=== PATIENT | female | born 1975 | race Two or more races ===

== ENCOUNTER 2017-11-09 18:17 | Emergency (ER) | payer SELFPAY ==
--- NOTE | 2017-11-09 19:51 | ED ---
Respiratory - HPI Summary HPI Summary: The pt is a 42 y/o female presenting to [facility] c/o nasal congestion for the last 5 days worsened 3 days ago. She notes CP, DUTTON, dyspnea, body aches, fever, cough , chills, and post nasal drip. She took Night quill to no relief. - History of Current Complaint Chief Complaint: EDFluSymptoms Stated Complaint: CONGESTION/CHEST PAIN/GENERAL ILLNESS Time Seen by Provider: 11/09/17 19:46 Hx Obtained From: Patient, Family/Supervisor [employer] Onset/Duration: Lasting Days - 5 days, Still Present, Worse Since - 3 days ago Current Severity: Mild Pain Intensity: 1 - Allergy/Home Medications Allergies/Adverse Reactions: Allergies Allergy/AdvReac Type Severity Reaction Status Date / Time morphine Allergy Rash And Verified 11/09/17 19:34 Itching Home Medications: Home Medications NK [No Home Medications Reported] 11/09/17 [History Confirmed 11/09/17] PMH/Surg Hx/FS Hx/Imm Hx Previously Healthy: Yes Endocrine/Hematology History: Denies: Hx Diabetes Cardiovascular History: Denies: Hx Hypertension Respiratory History: Denies: Hx Asthma Sensory History: Denies: Hx Deafness Opthamlomology History: Denies: Hx Legally Blind - Cancer History Hx Chemotherapy: No Hx Radiation Therapy: No - Surgical History Surgery Procedure, Year, and Place: Breast implants, Infectious Disease History: No Infectious Disease History: Denies: Traveled Outside the [place] in Last 30 Days - Family History Known Family History: Positive: None - Denies hx of breast CA - Social History Occupation: Unemployed Lives: With Family Alcohol Use: None Substance Use Type: Reports: None Smoking Status (MU): Never Smoked Tobacco Review of Systems Constitutional: Other - Positve: body aches Positive: Chills ENT: Other - Positive: Nasal congestion, post-nasal drip Positive: Chest Pain Respiratory: Other - Positive: dyspnea Positive: Shortness Of Breath, Cough All Other Systems Reviewed And Are Negative: Yes Physical Exam - Summary Physical Exam Summary: Appearance: Well-appearing, Well-nourished, lying in bed comfortable Skin: Warm, dry, no obvious rash Eyes: sclera anicteric, no conjunctival pallor ENT: mucous membranes moist; Minimal sinus tenderness to percussion; No post nasal drip seen; No nasal discharge Neck: deferred Respiratory: No signs of respiratory distress Cardiovascular: Appears well perfused, pulses are nml Abdomen: deferred Musculoskeletal: Moving all 4 extremities without obvious discomfort Neurological: Awake and alert, mentation is normal, speech is fluent and appropriate Psychiatric: affect is normal, does not appear anxious or depressed Triage Information Reviewed: Yes Vital Signs On Initial Exam: Initial Vitals Temp Pulse Resp BP Pulse Ox 97.4 F 64 16 101/64 99 11/09/17 18:25 11/09/17 18:25 11/09/17 18:25 11/09/17 18:25 11/09/17 18:25 Vital Signs Reviewed: Yes Diagnostics - Vital Signs Vital Signs Temp Pulse Resp BP Pulse Ox 11/09/17 18:25 97.4 F 64 16 101/64 99 - Laboratory Lab Statement: Any lab studies that have been ordered have been reviewed, and results considered in the medical decision making process. Disposition - Course Course Of Treatment: A 42 year-old F presents to the ED with a CC of nasal congestion for the last 5 days worsened 3 days ago. She notes CP, DUTTON, dyspnea, body aches, fever, coughs, chills, and post nasal drip. She took Night quill to no relief. physical exam revealed minimal sinus tenderness to percussion; no post nasal drip and no nasal discharge. In the ED course, pt was given Oxymetazoline 0.05% spray, and Pseudoephedrine tab 60 mg PO twice which improved the symptoms. Patient will be discharged with a final Dx of UTI and rhinosinusitis. Pt is agreeable with this plan. Allergies noted. - Diagnoses Provider Diagnoses: URI (upper respiratory infection), Rhinosinusitis Discharge - Sign-Out/Discharge Documenting (check all that apply): Patient Departure - DC - Discharge Plan Condition: Stable Disposition: HOME Patient Education Materials: Rhinosinusitis (ED) Referrals: No Primary Care Phys,NOPCP [Primary Care Provider] - [facility] [Outside] - 3 Days Additional Instructions: I recommend you take afrin nasal spray and pseudoephedrine tablets to help with your symptoms. These types of infection usually take 1-2 weeks to resolve and research indicates that antibiotics do not significantly shorten the duration of your illness. You might also want to try a Neti Pot, which many find very helpful in clearing the nasal passages and sinuses. Return to ED for any new or worsening symptoms - Billing Disposition and Condition Condition: STABLE Disposition: Home - Attestation Statements Document Initiated by Gretta: Yes Documenting Scribe: Lilian Martinez Provider For Whom Gretta is Documenting (Include Credential): Dr. Primo Solorio MD Scribe Attestation: Lilian Salas, scribed for Dr. Primo Solorio MD on 11/10/17 at 1523. Scribe Documentation Reviewed: Yes Provider Attestation: The documentation as recorded by the yovanyibe, Lilian Martinez accurately reflects the service I personally performed and the decisions made by me, Dr. Primo Solorio MD
[2017-11-09] MEDS ORDERED: Oxymetazoline 0.05% NASAL SPR* 15 ML BTL BOTH NARES ONE (19:54)
[2017-11-09] MEDS ORDERED: Pseudoephedrine TAB* 60 MG PO ONE (19:55)
[2017-11-09 20:23] VITALS: BP 98/59
[2017-11-09] MEDS ORDERED: Pseudoephedrine TAB* 30 MG PO ONE (21:00)
== END 2017-11-09 20:22 | disposition home or self-care (01) ==
LOC: ED 18:17
DX: J32.9 Chronic sinusitis, unspecified (principal); N39.0 Urinary tract infection, site not specified; Z88.5 Allergy status to narcotic agent
CPT/HCPCS: 99282; A9270-GY

== ENCOUNTER 2018-10-07 20:05 | Observation (INO) | payer MEDICAID, OTHER ==
--- NOTE | 2018-10-07 21:01 | ED ---
Complex/Multi-Sys Presentation - HPI Summary HPI Summary: Pt is a 42 y/o F presenting to the ED with multiple symptoms present. She states that about 2 months ago, she began feeling frequent dizziness. She notes that she experienced sx when she walked, including CP on the L anterior side, fatigue, SOB, dizziness, and lightheadedness. She visited her emergency services professional in [facility], and she found that she had a heart murmur and bicuspid aortic valve, and he wants her to follow up with cardiology here in [place], which she has not been able to do yet. Today, she experienced pain in her L hand, trouble walking at around 1800 when she was on a walk with her , characterized by a DUTTON, CP as a quick shocking feeling, weakness, chills, and nausea. She denies abd pain or diaphoresis. The CP is not triggered by anything, but instead comes on unexpectedly, and resolves spontaneously. - History Of Current Complaint Chief Complaint: EDHeadache Time Seen by Provider: 10/07/18 20:27 Hx Obtained From: Patient Onset/Duration: Gradual Onset, Lasting Minutes, Still Present Timing: Intermittent, Lasting:, Minutes Severity Currently: Moderate Severity Initially: Moderate Associated Signs And Symptoms: Positive: Dizziness, Weakness, Headache, SOB, Chest Pain, Nausea. Negative: Abdominal Pain, Diaphoresis - Allergies/Home Medications Allergies/Adverse Reactions: Allergies Allergy/AdvReac Type Severity Reaction Status Date / Time morphine Allergy Rash And Verified 10/07/18 20:16 Itching PMH/Surg Hx/FS Hx/Imm Hx Previously Healthy: Yes Endocrine/Hematology History: Denies: Hx Diabetes Cardiovascular History: Reports: Other Cardiovascular Problems/Disorders - heart murmur Denies: Hx Hypertension Respiratory History: Denies: Hx Asthma Sensory History: Denies: Hx Legally Blind, Hx Deafness Opthamlomology History: Denies: Hx Legally Blind - Cancer History Hx Chemotherapy: No Hx Radiation Therapy: No - Surgical History Surgery Procedure, Year, and Place: Breast implants, Infectious Disease History: No Infectious Disease History: Reports: Traveled Outside the [place] in Last 30 Days - Family History Known Family History: Positive: Cardiac Disease Negative: Other - breast CA - Social History Lives: With Family Alcohol Use: None Hx Substance Use: No Substance Use Type: Reports: None Hx Tobacco Use: No Smoking Status (MU): Never Smoked Tobacco Review of Systems Positive: Chills, Fatigue. Negative: Skin Diaphoresis Positive: Chest Pain Positive: Shortness Of Breath Positive: Nausea. Negative: Abdominal Pain Positive: Myalgia - L hand, Other - trouble walking Neurological: Other - dizziness, lightheadedness Positive: Headache, Weakness All Other Systems Reviewed And Are Negative: Yes Physical Exam - Summary Physical Exam Summary: Appearance: Well-appearing, Well-nourished, lying in bed comfortably Skin: Warm, dry, no obvious rash Eyes: sclera anicteric, no conjunctival pallor ENT: mucous membranes moist, pharynx appears normal Neck: Supple, nontender Respiratory: Clear to auscultation, no signs of respiratory distress Cardiovascular: Normal S1, S2. No murmurs. Normal distal pulses in tibial and radial bilaterally. Abdomen: Soft, nontender, normal active bowel sounds present Musculoskeletal: Normal, Strength/ROM Intact Neurological: A&Ox3, awake and alert, mentation is normal, speech is fluent and appropriate Psychiatric: affect is normal, does not appear anxious or depressed Triage Information Reviewed: Yes Vital Signs On Initial Exam: Initial Vitals Temp Pulse Resp BP Pulse Ox 98.5 F 56 16 155/77 99 10/07/18 20:10 10/07/18 20:10 10/07/18 20:10 10/07/18 20:10 10/07/18 20:10 Vital Signs Reviewed: Yes Diagnostics - Vital Signs Vital Signs Temp Pulse Resp BP Pulse Ox 10/07/18 20:10 98.5 F 56 16 155/77 99 - Laboratory Result Diagrams: 10/07/18 21:08 10/08/18 06:08 Lab Statement: Any lab studies that have been ordered have been reviewed, and results considered in the medical decision making process. - Radiology CXR Radiology Interpretation Completed By: ED Physician Summary of Radiographic Findings: No acute process, pending official radiology report. - EKG 2037 Cardiac Rate: Bradycardia - 57bpm EKG Rhythm: Sinus Bradycardia ST Segment: Normal Ectopy: None Summary of EKG Findings: EKG at 2037 shows sinus bradycardia at 57bpm, P waves, QRS complex, and T waves are within normal limits, T waves and intervals are normal, no ischemic changes. This is a normal EKG. 2016 Cardiac Rate: Bradycardia - 57bpm EKG Rhythm: Sinus Bradycardia ST Segment: Normal Ectopy: None Summary of EKG Findings: EKG at 2017 shows sinus bradycardia at 51bpm, P waves, QRS complex, and T waves are within normal limits, T waves and intervals are normal, no ischemic changes. This is a normal EKG. Complex Multi-Symp Course/Dx Course Of Treatment: Pt is a 42 y/o F presenting to the ED with multiple symptoms, including dizziness initially onset about 2 months ago, CP that comes on unexpectedly on the L anterior side, fatigue, SOB, lightheadedness, trouble walking, L hand pain, DUTTON, nausea, chills, and weakness. She denies abd pain or diaphoresis. FHx of cardiac issues. EKG at 2017 shows sinus bradycardia at 51bpm, P waves, QRS complex, and T waves are within normal limits, T waves and intervals are normal, no ischemic changes. This is a normal EKG. CXR shows no acute process, pending official radiology report. Pts hematology shows RDW of 19 and MPV of 6.9. Her chemistry shows BUN/Creatinine ratio of 25.0, and Troponin I of 0.21. 2141 - I spoke with Dr. Suárez of cardiology who agrees with the plan to admit the pt to the hospitalist. 2211 - I spoke with Dr. Daily who will come to evaluate the pt for admission. Pt's Troponin I was corrected to be 0.01. However, I spoke with Dr. Daily as I would still like the patient to be admitted for further cardiac workup d/t worsening angina sx. - Diagnoses Provider Diagnoses: Crescendo angina Discharge ED - Sign-Out/Discharge Documenting (check all that apply): Patient Departure Patient Received Moderate/Deep Sedation with Procedure: No - Discharge Plan Condition: Stable Disposition: ADMITTED TO [facility] - Billing Disposition and Condition Condition: STABLE Disposition: Admitted to [facility] - Attestation Statements Document Initiated by Scribe: Yes Documenting Scribe: Lori Villasenor Provider For Whom Gretta is Documenting (Include Credential): Primo Solorio MD. Scribe Attestation: Lori Salas, scribed for Primo Solorio MD. on 10/08/18 at 1843. Scribe Documentation Reviewed: Yes Provider Attestation: The documentation as recorded by the scribe, Lori Villasenor accurately reflects the service I personally performed and the decisions made by me, Primo Solorio MD. Status of Gretta Document: Viewed Consult Consult: 2141 - I spoke with Dr. Suárez who agrees with the plan to admit the pt to the hospitalist.
[2018-10-07 21:16] LABS: ABS Basophils 0.1 10^3/ul (0-0.2); ABS Eosinophils 0.4 10^3/ul (0-0.6); ABS Lymphocytes 3.3 10^3/ul (1.0-4.8); ABS Monocytes 0.9 10^3/ul (0-0.8); ABS Neutrophils 4.5 10^3/ul (1.5-7.7); Eosinophil % 4.7 %; Hematocrit 39 % (35-47); Hemoglobin 13.2 g/dL (12.0-16.0); Lymphocyte % 36.2 %; Mean Corpuscular HGB Conc 34 g/dL (31-36); Mean Corpuscular Hemoglobin 29 pg (27-31); Mean Corpuscular Volume 85 fL (80-97); Mean Platelet Volume 6.9 fL (7.4-10.4); Platelet Count 322 10^3/uL (150-450); Red Cell Distribution Width 19 % (10-15); White Blood Count 9.2 10^3/uL (3.5-10.8)
[2018-10-07] MEDS ORDERED: Acetaminophen TAB* 325 MG PO ONE (21:20)
[2018-10-07 21:33] LABS: ALT 12 U/L (7-52); AST 15 U/L (13-39); Albumin 4.5 g/dL (3.2-5.2); Albumin/Globulin Ratio 1.7 (1-3); Alkaline Phosphatase 68 U/L (34-104); Anion Gap 7 mmol/L (2-11); Blood Urea Nitrogen 17 mg/dL (6-24); CO2 Carbon Dioxide 26 mmol/L (22-32); Calcium 9.5 mg/dL (8.6-10.3); Chloride 107 mmol/L (101-111); EGFR African American 114.3 (>60); EGFR Non-African American 94.4 (>60); Globulin 2.6 g/dL (2-4); Glucose 100 mg/dL (70-100); Potassium 3.9 mmol/L (3.5-5.0); Sodium 140 mmol/L (135-145); Total Protein 7.1 g/dL (6.4-8.9)
[2018-10-07] MEDS ORDERED: Aspirin 81 mg CHEW TAB* 81 MG TAB.CHEW PO ONE (21:40)
[2018-10-07] MEDS ORDERED: Heparin DRIP 25,000 UNITS(*) 25,000 UNITS/500 ML BAG IV SCH (21:45)
[2018-10-07] MEDS ORDERED: Heparin VIAL(*) 5000 UNITS/ML VIAL (FIVE THOUSAND) IV PRN (22:01)
[2018-10-07] MEDS ORDERED: Heparin VIAL(*) 5000 UNITS/ML VIAL (FIVE THOUSAND) ONE (22:02)
[2018-10-07 22:26] LABS: Troponin I 0.01 ng/mL (<0.04)
[2018-10-07] MEDS ORDERED: Acetaminophen TAB* 325 MG PO PRN (22:54)
[2018-10-07] MEDS ORDERED: Al Hydrox/Mg Hydrox/Simet LIQ* 30 ML UDC PO PRN (22:54)
[2018-10-07 23:24] LABS: % Iron Saturation 11 % (15-55); Iron 46 ug/dL (50-212); Total Iron Binding Capacity 405 mcg/dL (250-450); Transferrin 289 mg/dL (203-362)
[2018-10-07 23:39] LABS: TSH (Thyroid Stimulating Horm) 2.47 mcIU/mL (0.34-5.60)
[2018-10-07 23:45] LABS: Ferritin 32.4 ng/mL (11-307)
[2018-10-08 00:22] LABS: HDL Cholesterol 42.8 mg/dL
[2018-10-08 00:25] LABS: Troponin I 0.01 ng/mL (<0.04)
--- NOTE | 2018-10-08 01:51 | HP ---
HISTORY AND PHYSICAL: DATE OF ADMISSION: 10/07/18 PRIMARY CARE PHYSICIAN: None. HEALTHCARE PROXY: Healthcare proxy is her or brother, Kg. CODE STATUS: Full. CHIEF COMPLAINT: Subacute headaches, chest pain, and shortness of breath. HISTORY OF PRESENT ILLNESS: Ms. Horton is a 42-year-old woman without significant past medical history who is presenting after onset of headache, shortness of breath, and chest pain that started on the morning of presentation. She notes being in her usual state of health until approximately 2 months ago when she began to experience mild substernal chest pressure. At that time, she was in [facility] and saw a physician who ordered an echocardiogram and had diagnosed her with a bicuspid aortic valve, which she reports her father had. He otherwise told her that her other tests were normal except for anemia and that she should stop exercising given her anemia. Over the last couple of months her symptoms of mild chest pressure had persisted and she had returned to her home in [place], [place]. She attempted to exercise again, but experienced extreme fatigue and palpitations during exercise, although she does not have worsening chest pressure on exertion. This morning she was at a store and experienced sudden onset of occipital headache, which progressed to be associated with shortness of breath, diaphoresis, and a substernal pressure- like chest pain that radiated to the left side of her chest. She reports it was also associated with nausea, but denies vomiting, palpitations, abdominal pain, constipation, diarrhea, lower extremity swelling. She does think that this episode was associated with anxiety and tremulousness as well, but states that the anxiety started after the symptoms. She denies history of these symptoms in the past, except for noted chest pressure that she began experiencing 2 months ago in [place]. She also denies visual changes, focal weakness, tingling or numbness. She does not experience morning headaches. Of note, while the patient does not have significant medical history, she has been seen frequently in the past in this ER for multiple generalized symptoms including nasal congestion, pelvic pain, abdominal pain, breast pain, back pain , and varicose veins. In the emergency room, the patient's symptoms mildly improved without intervention. Her EKG was unremarkable, and her troponin initially resulted with 0.26. So, she was given aspirin and started on a heparin drip. However, by the time of admission interview, the laboratory had corrected their troponin value to 0.01, which is normal. So, the patient's heparin drip was stopped, but given that she was still experiencing diaphoresis, chest pain, and was noted to have bradycardia and significant family cardiac history, she was still admitted to Medicine for further evaluation. PAST MEDICAL HISTORY: 1. Varicose vein, status post surgical intervention. 2. Anemia of unknown etiology, resolved. 3. Breast implants. 4. Bicuspid aortic valve. MEDICATIONS: Previously she was taking iron. ALLERGIES: MORPHINE caused itching. FAMILY HISTORY: The patient reports one of her younger brothers from [place] at the age of 25, another younger brother of hers has a device, either a PPM or ICD. Her maternal grandmother and aunt have diabetes. Her father due to complications from aortic valve replacements for a bicuspid aortic valve. SOCIAL HISTORY: The patient is originally from [facility], but has lived in [place] for years. She lives with her , mother, and 4 children. She reports rare tobacco use at a young age, but no significant use in adulthood. She has rare wine. She denies other recreational drugs. She works as a housewife. PHYSICAL EXAM: GENERAL: She is a well-appearing woman, in no acute distress, but does appear mildly uncomfortable, not anxious. She is alert, interactive, very pleasant. VITAL SIGNS: Afebrile, heart rate 50, blood pressure 155/77, respiratory rate 16, oxygen saturation 99% on room air. HEENT: With moist mucous membranes. OP clear. Sclerae anicteric. NECK: Supple. No JVD. LUNGS: Clear to auscultation bilaterally. No increased work of breathing. HEART: Bradycardic, regular rhythm. No murmurs, gallops or rubs. ABDOMEN: Soft, nontender, nondistended. EXTREMITIES: Warm and well perfused. No evidence of edema. NEURO: A and O x3. No focal deficits. Speech fluent. SKIN: With mild diaphoresis. DIAGNOSTIC STUDIES/LAB DATA: Hemoglobin normal, with normal MCV. BMP and LFTs are unremarkable. Troponin 0.01. EKG: Sinus bradycardia of 51. ASSESSMENT AND PLAN: Ms. Horton is a 42-year-old woman without significant past medical history, presenting with subacute substernal pressure-like chest pain associated with shortness of breath and diaphoresis, also occipital headache. She is found with sinus bradycardia and exam significant for diaphoresis. She will be admitted for further cardiac monitoring under observation. 1. Chest pain: The patient was given 324 mg of aspirin, but her heparin drip was discontinued after her first troponin was corrected to normal. We will continue telemetry monitoring with serial troponins. It is possible her chest pain is related to anxiety as she has experienced this symptom. However, I would like to rule out organic causes primarily, especially given her significant family history. A1c, lipids, and TSH have been ordered. We will repeat EKG if symptoms worsen. 2. History of anemia: Iron studies ordered. The patient does not have anemia currently, but iron deficiency could contribute to feelings of fatigue. 3. DVT prophylaxis: The patient is ambulatory. 4. Code status: Full code. TIME SPENT: Approximately 60 minutes were spent on admission of this patient, more than half of which was spent at bedside for interview and exam. [id number]/[facility] #: [id number] SUSIE
[2018-10-08 06:40] LABS: BUN/Creatinine Ratio 23.8 (8-20); Calcium 8.8 mg/dL (8.6-10.3); EGFR African American 124.8 (>60); EGFR Non-African American 103.1 (>60); Potassium 3.7 mmol/L (3.5-5.0)
[2018-10-08] MEDS ORDERED: NS 0.9% 500 ML* 500 ML IV ONE (08:41)
[2018-10-08] MEDS: Ascorbic Acid TAB* 500 MG PO SCH (08:49)
[2018-10-08] MEDS: Ferrous Sulfate TAB* 325 MG PO SCH (08:49)
--- NOTE | 2018-10-08 11:01 | PN ---
Subjective Date of Service: 10/08/18 Interval History: Pt c/o chest pain. She notes that 2 mo ago she went to [facility] and started to experience dizziness, weakness, fatigue. She had w/u and was found to have bicuspid AV valve, iron deficiency, heart murmur. She notes symptoms lasted approximately 1 month and subsided. Symptoms returned approximately 2 days ago. She c/o SOB and difficulty with deep inspiration, chest pain that is palpable and worsened with deep breathing, relieved with leaning forward. She has diallo, feels dehydrated, and fatigue. She has dizziness and palpitations with exercise. Objective Active Medications: Acetaminophen (Tylenol Tab*) 975 mg PO Q8H PRN Al Hydrox/Mg Hydrox/Simethicone (Maalox Plus*) 30 ml PO Q6H PRN Ascorbic Acid (Vitamin C Tab*) 500 mg PO DAILY EYAL Ferrous Sulfate (Ferrous Sulfate Tab*) 325 mg PO DAILY EYAL Vital Signs: Temp Pulse Resp BP Pulse Ox 97.8 F 45 16 100/58 100 10/08/18 07:49 10/08/18 07:49 10/08/18 07:49 10/08/18 10:06 10/08/18 07:49 Oxygen Devices in Use Now: Nasal Cannula Appearance: Pt is sitting up in bed. She appears to be in NAD. She is cooperative, appropriate. Eyes: No Scleral Icterus, PERRLA Ears/Nose/Mouth/Throat: NL Teeth, Lips, Gums, Clear Oropharnyx, Mucous Membranes Moist Neck: NL Appearance and Movements; NL JVP, Trachea Midline Respiratory: Symmetrical Chest Expansion and Respiratory Effort, Clear to Auscultation Cardiovascular: NL Sounds; No Murmurs; No JVD, RRR, No Edema, - - Anterior chest wall TTP; pain with deep inspiration Abdominal: NL Sounds; No Tenderness; No Distention, No Hepatosplenomegaly Extremities: No Edema, No Clubbing, Cyanosis Neurological: Alert and Oriented x 3 Result Diagrams: 10/07/18 21:08 10/08/18 06:08 Assess/Plan/Problems-Billing Assessment: 42 PMHx anemia, bicuspid valve presents with CP worsened with inspiration, palpation, SOB, diallo, fatigue. - Patient Problems (1) Chest pain Comment: -Pt with CP TTP, increased with deep breathing, relieved when leaning forward; associated SOB, fatigue -EKG without ST changes, trop negative x3 -TSH, Ddimer WNL -ECHO ordered -Ordered Ibuprofen 600 TID, Colchicine 0.6 qd for possible pericarditis; await echo (2) Anemia Comment: -H/H stable; low Fe -PO iron supplementation (3) DVT prophylaxis Comment: -Ambulation (4) Full code status Status and Disposition: Observation. Discharge when stable.
[2018-10-08] MEDS: NS 0.9% 1000 ML** 1,000 ML IV SCH ×2 (13:11→22:46)
[2018-10-08] MEDS ORDERED: NS 0.9% 1000 ML** 1,000 ML IV ONE (15:24)
[2018-10-08] MEDS: Ibuprofen TAB* 600 MG PO SCH (17:56)
[2018-10-08] MEDS: Colchicine* 0.6 MG TAB PO SCH (17:57)
[2018-10-09] MEDS: Ibuprofen TAB* 600 MG PO SCH ×2 (00:25→08:21)
[2018-10-09] MEDS: Ascorbic Acid TAB* 500 MG PO SCH (08:21)
[2018-10-09] MEDS: Ferrous Sulfate TAB* 325 MG PO SCH (08:22)
[2018-10-09] MEDS: Colchicine* 0.6 MG TAB PO SCH (08:22)
--- NOTE | 2018-10-09 11:26 | ECHO ---
*[facility]* [place] [address] Fax #: [phone] Transthoracic Echocardiogram Patient: Fina Horton : 1975 Study Date: 10/09/2018 Age: 42 Gender: F HR: 42 bpm Height: 63 in /160 cm BSA: 1.63 m^2 Weight: 132.7 lb /60.3 kg BMI: 23.6 kg/m^2 *Pharmacist Helper: * Jane Rodriguez RUST *Referring Physician: * Bettye SlaughterReading Physician: * Barron Suárez MD Indications: Chest Pain, unspecified. History: Breast Implants, Bicuspid Aortic Valve. Conclusions Summary: - Left ventricle: Systolic function is at the lower limits of normal. The estimated ejection fraction is 50-55%. Wall motion is normal; there are no regional wall motion abnormalities. - Mitral valve: There is trace to mild regurgitation. - Aortic valve: The valve is trileaflet. No Bicuspid valve There is no evidence of stenosis. There is trace regurgitation. - Tricuspid valve: There is mild regurgitation. - Pericardium, extracardiac: There is no significant pericardial effusion. - Pulmonary arteries: Systolic pressure is within the normal range. - Study data: No prior study is available for comparison. Study data: Transthoracic echocardiogram. Procedure: Transthoracic echocardiography was performed. Image quality was fair. The study was technically limited due to breast implants. Complete 2D, spectral Doppler, and color flow Doppler. Location: Bedside. Patient status: Inpatient. Patient room number: 453. No prior study is available for comparison. Rhythm: Bradycardia. Findings Left ventricle: The cavity size is normal. Wall thickness is normal. Systolic function is at the lower limits of normal. The estimated ejection fraction is 50-55%. Wall motion is normal; there are no regional wall motion abnormalities. There is no consistent Doppler evidence of clinically significant diastolic dysfunction. Right ventricle: The cavity size is normal. Systolic function is normal. Systolic pressure is within the normal range. Left atrium: The atrium is normal in size. Right atrium: The atrium is mildly dilated. Mitral valve: The leaflets are mildly thickened. There is no evidence of stenosis. There is trace to mild regurgitation. Aortic valve: The valve is trileaflet. No Bicuspid valve There is no evidence of stenosis. There is trace regurgitation. Tricuspid valve: The leaflets are normal thickness. There is no evidence of stenosis. There is mild regurgitation. Pulmonic valve: The leaflets are normal thickness. There is no evidence of stenosis. There is trace regurgitation. Aorta: Ascending aorta: The ascending aorta is appears normal. The aortic root appears normal. The aortic arch appears normal. Pericardium: There is no significant pericardial effusion. Pulmonary arteries: The main pulmonary artery is normal-sized. Systolic pressure is within the normal range. Systemic veins: Inferior vena cava: The vessel is normal in size. There is (>= 50%) respiratory change in the IVC dimension. Measurements Left ventricle Value Ref Aortic valve Value Ref ALEK, LAX 4.6 cm 3.8 - 5.2 Quiana diam, ED 1.7 cm ----- ESD, LAX 3.3 cm 2.2 - 3.5 Peak v, S 1.54 m/sec ----- FS, LAX 29 % - 45 VTI, S 37.5 cm ----- PW, ED, LAX 0.9 cm 0.6 - 0.9 Mean grad, S 5.0 mm Hg ----- FS 29 % - 45 Peak grad, S 9.0 mm Hg ----- PW, ED 0.9 cm 0.6 - 0.9 LVOT/AV, VTI ratio 0.72 ----- E', lat quiana, TDI 15.0 cm/sec >=10.0 DAI, VTI 2.26 cm^2 --- -- E/e', lat quiana, 5 DAI, Vmax 2.28 cm^2 ----- TDI E', med quiana, TDI 12.1 cm/sec >=7.0 Mitral valve Value Ref E/e', med quiana, 7 Peak E 0.79 m/sec ----- TDI Peak A 0.23 m/sec ----- E', avg, TDI 13.6 cm/sec Decel time 313 ms ----- E/e', avg, TDI 6 <=14 Peak grad, D 2.5 mm Hg --- -- Peak E/A ratio 3.4 ----- LVOT Value Ref Diam, S 2.00 cm Pulmonic valve Value Ref Area 3.1 cm^2 Peak v, S 0.97 m/sec ----- Peak nelson, S 1.12 m/sec Peak grad, S 4.0 mm Hg ----- VTI, S 27.0 cm Peak grad, S 5 mm Hg Tricuspid valve Value Ref Mean grad, S 2 mm Hg TR peak v 2.3 m/sec <=2.8 SV 85 ml Peak RV-RA grad, S 21 mm Hg ----- SV/bsa 52 ml/m^2 Aortic root Value Ref Ventricular septum Value Ref Root diam 2.5 cm <3.9 IVS, ED 0.6 cm 0.6 - 0.9 Ascending aorta Value Ref Right ventricle Value Ref AAo AP diam, S 3.4 cm ----- ALEK, LAX 3.0 cm ALEK minor ax, A4C (H) 4.3 cm 1.9 - 3.5 Aortic arch Value Ref mid Arch diam 2.1 cm ----- Pressure, S 24 mm Hg Decending aorta Value Ref Left atrium Value Ref Cyndie peak nelson 1.04 m/sec ----- AP dim, ES 3.30 cm 2.70 - 3.80 Pulmonary artery Value Ref ML dim, A4C 4.4 cm Pressure, S 20.0 mm Hg ----- SI dim, A4C 4.5 cm Vol/bsa, ES, 1-p 31 ml/m^2 11 - 40 Inferior vena cava Value Ref A4C Diam 2.0 cm ----- Vol/bsa, ES, A/L 33 ml/m^2 16 - 34 Right atrium Value Ref SI dim, ES 5.0 cm 3.4 - 5.3 ML dim, ES, A4C (H) 4.5 cm 2.6 - 4.4 SI dim, ES, A4C 5.0 cm 3.4 - 5.3 Estimated RAP 3 mm Hg Legend: (L) and (H) amrik values outside specified reference range. Prepared and electronically signed by Barron Suárez MD 10/09/2018 11:26
[2018-10-09 16:00] VITALS: BP 139/94
[2018-10-09] MEDS ORDERED: Ibuprofen TAB* 600 MG PO SCH (16:00)
--- NOTE | 2018-10-09 19:25 | DS ---
CC: Dr. Radha Hooper; Dr. Eren Arriaza, [facility]; Dr. Dorian Bond* DISCHARGE SUMMARY: DATE OF ADMISSION: 10/07/18 DATE OF DISCHARGE: 10/09/18 PRIMARY CARE PHYSICIAN: None. ATTENDING PHYSICIAN: Dr. Dorian Bond* (dictated by Rashaun Ayala NP ). HOSPITAL COURSE: Please refer to admitting H and P on 10/07/18, but in short, Ms. Horton is a 42-year-old female patient with a past medical history significant only for iron-deficiency anemia, who presented to the emergency department with a complaint of headache, shortness of breath, and chest pain. The patient states that she was having substernal chest pressure, reported to the emergency department for evaluation. She stated she had a similar episode 2 months ago when she was [place] in [facility]. At that time, she did see a physician, who ordered an echocardiogram and diagnosed her with a bicuspid aortic valve and also some anemia. She stated that her anemia was so severe that she was told that she should exercising because she was experiencing palpitations and shortness of breath with exercise and that her until anemia corrected she should refrain because of her fatigue and palpitations. The patient I think did not have followup after that; however, she presents to the emergency department at this time for this generalized fatigue, reproducible chest pressure. The patient's EKG did not show any acute ST segment changes. There was a mistake in her troponin level initially. Her troponin was reported elevated at 0.26; however, it was then corrected to 0.01. The patient had initially been given aspirin and started on a heparin drip, which was subsequently stopped. The patient did, however, still experience chest pain and was bradycardic. She is noted to also have family history of cardiac issues and she was subsequently admitted. The patient was discontinued off the heparin drip; however, the patient's chest pain did appear to be positional. This did present with some concern because when the patient leaned forward she had relief of her chest pain. This raised a suspicion for potential early acute pericarditis. The patient was started on colchicine and ibuprofen and an echocardiogram was ordered. The patient reported some relief with the ibuprofen and the colchicine. Echocardiogram was completed on 10/09/18. The echocardiogram did not show any changes; however, it was essentially normal echo. She had reported that when she was in [facility] she was told she had a bicuspid aortic valve; however, the transthoracic echo that was completed on 03/28 did in fact show that she has a trileaflet aortic valve. She also has normal LV function with an ejection fraction of 50% to 55%. She had normal wall motion. There was trace mild regurgitation of the mitral valve. Again, the aortic valve being trileaflet. There was no bicuspid valve noted. No evidence of stenosis. There was trace aortic regurgitation. Tricuspid valve with mild regurgitation. The pericardium showed no pericardial effusion. Pulmonary arteries showed systolic pressure to be within normal range and there was no prior study for comparison. There were no changes on telemetry during that time. I also obtained an ESR and CRP. Her ESR was 9, CRP was less than 1 , again indicating that there was no acute pericarditis. Because the patient did improve with anti-inflammatories, there is a possibility that the patient does have some costochondritis. Also noting that the patient previously had iron- deficiency anemia, although her lab work was normal, hemoglobin 13.2 and hematocrit was 39, her iron was 46, total iron binding capacity was 405, and her percent saturation was 11. Some of her symptoms could be mediated by an iron-deficiency anemia; however, at this time it appears more that her chest pain is more of a chest wall pain and musculoskeletal in nature, again improving with the administration of ibuprofen. I did have a lengthy discussion with the patient regarding these findings. She is quite relieved that her echocardiogram is normal and that her aortic valve is not compromised. The patient is seeking outpatient followup at the [facility]. She has been referred for outpatient followup and she is planning on making appointment for followup at the clinic in the next 1 to 2 weeks. It should also be noted that the patient's TSH was also checked and it was within normal limits. D-dimer was also noted to be within normal limits, so there was no indication for us to believe that the patient was having pulmonary embolus. DISCHARGE DIAGNOSES: 1. Atypical chest pain. 2. Iron-deficiency anemia. DISCHARGE MEDICATIONS: Include: 1. Ibuprofen 600 mg p.o. q.6 hours as needed for chest wall pain, take with food. 2. Ferrous sulfate 325 mg p.o. daily. 3. Vitamin C 500 mg p.o. daily. 4. Tylenol, to be alternated with ibuprofen, 975 mg p.o. q.8 hours as needed. REVIEW OF SYSTEMS: The patient denies any fever, fatigue, or chills. No chest pain at this time, no shortness of breath, no palpitations. No abdominal pains , no nausea, no vomiting. No constipation or diarrhea. No urinary complaints. No arthralgias or myalgias and no further constitutional complaints. PHYSICAL EXAMINATION: The patient is awake, alert, well appearing, in no acute distress. Vital signs are blood pressure 112/62, heart rate 54, respiratory rate 20, O2 saturation 100% on room air, temperature 97.9. HEENT: The patient is atraumatic, normocephalic. PERRLA. Nonicteric sclerae. Oral mucosa is moist. Tongue is midline. Neck is supple, nontender. No JVD noted. No carotid bruits auscultated. Cardiovascular: S1, S2 present. No murmurs, gallops, or rubs noted. Rate is bradycardic and regular. Lungs are clear bilaterally to auscultation with no wheezing, rhonchi, or rales. Abdomen is soft, nontender, nondistended. Positive bowel sounds in all 4 quadrants. : Deferred. Musculoskeletal: There is no clubbing, no cyanosis, no edema. Positive pedal pulses. She has full range of motion, steady gait. Neurologic: Grossly intact with no focal deficits. Psychiatric: She is cooperative and appropriate. DIAGNOSTIC STUDIES/LAB DATA: WBCs 9.2, RBCs 4.50, hemoglobin 13.2, hematocrit 39, platelets 322. Sodium 140, potassium 3.7, chloride 110, CO2 of 24, creatinine 0.63, GFR 103.1, glucose 100, calcium 8.8. Hemoglobin A1c 5.1. Magnesium 2.0. Iron 46, TIBC 405, percent saturation 11, unsaturated iron binding capacity is less than 390, transferrin 289, ferritin 32.4. Total bilirubin 0.30, AST 15, ALT 12, alk phos 68. Troponin is negative at 0.01 x3. CRP is less than 1. Total protein 7.1, albumin 4.5, globulin 2.6, albumin/ globulin ratio 1.7. Triglycerides 62, total cholesterol 155, LDL 80, HDL 42.8. TSH is 2.47 and D-dimer was less than 200. Imaging: Transthoracic echocardiogram as noted in the body of this document above. Chest x-ray dated 10/07/18 shows no active cardiopulmonary disease. Lung fried are clear. EKG dated 10/07/18 shows sinus bradycardia with no acute ST segment changes. DISCHARGE DIET: Regular as tolerated. ACTIVITY: Progress activity as tolerated. FOLLOWUPS: The patient was instructed to follow up with the [facility] in the next 1 to 2 weeks. She was discharged to call and make an appointment and also was given referral for the [facility] , followup as needed. DISPOSITION: The patient was discharged to home in stable condition. All questions were answered. The patient stated her understanding of her discharge diagnoses, medications, and followups. TIME SPENT: 35 minutes spent on discharge planning. RASHAUN AYALA NP [id number]/[facility] #: [id number] SUSIE
== END 2018-10-09 17:48 | disposition home or self-care (01) ==
LOC: ED 20:05 → MEDTELE 22:54
PROVIDERS: ADMIT Internal Medicine; ATTEND Internal Medicine
DX: R07.89 Other chest pain (principal); D50.9 Iron deficiency anemia, unspecified; Z79.899 Other long term (current) drug therapy; R51 Headache; R06.02 Shortness of breath; R53.83 Other fatigue; R53.1 Weakness
CPT/HCPCS: 36415; 71045; 80048; 80053; 80061; 82728; 83036; 83540; 83550; 83735; 84443; 84484; 85025; 85379; 85652; 86140; 93005; 93306; 96360; 96361; 96372; 99284; A9270-GY; G0378; J1644